=== PATIENT | female | born 1935 | race Caucasian/White ===

== ENCOUNTER 2017-05-23 15:13 | Inpatient (IN) | payer MEDICARE, OTHER ==
[~2017-05-23] VITALS: Ht 167.6 cm; Wt 69.4 kg
--- NOTE | 2017-05-23 15:15 | NUR ---
PATIENT TO ED DT NOSEBLEED X 3HOURS [employer]. PATIENT DENIES TRAUMA, NO KO. PT IS ON XARELTO FOR AFIB. SKIN IS WARM TO TOUCH. AFEBRILE. IN NO DISTRESS. VSS
[2017-05-23] MEDS ORDERED: PHENYLEPHRINE 0.5% NASAL SPRAY 15 ML BOTTLE NS ONE (15:31)
[2017-05-23] MEDS ORDERED: GELATIN SPONGE,ABSORBABLE 1 SPONGE SPONGE TP ONE (16:03)
[2017-05-23 16:23] LABS: BASOPHILS % (AUTO) 0.4 % (0.0-2.0); EOSINOPHILS # (AUTO) 0.1 /CMM (0.0-0.7); EOSINOPHILS % (AUTO) 1.2 % (0.0-6.0); HEMATOCRIT 36 % (33-45); HEMOGLOBIN 12.1 g/dL (11.5-14.8); LYMPHOCYTES # (AUTO) 1.3 /CMM (0.8-4.8); LYMPHOCYTES % (AUTO) 18.5 % (20.0-44.0); MEAN CORPUSCULAR HEMOGLOBIN 32 PG (26.0-33.0); MEAN CORPUSCULAR HGB CONC 34 g/dl (31.0-36.0); MEAN CORPUSCULAR VOLUME 95 fL (82-100); MONOCYTES # (AUTO) 0.5 /CMM (0.1-1.30); NEUTROPHILS # (AUTO) 5.3 /CMM (1.8-8.9); NEUTROPHILS % (AUTO) 72.9 % (43.0-81.0); PLATELET COUNT (AUTO) 254 /CMM (150-450); RDW COEFFICIENT OF VARIATION 16.9 (11.5-15.0); RED BLOOD CELL COUNT(AUTO) 3.83 MIL/uL (4.0-5.2); WHITE BLOOD COUNT (AUTO) 7.2 K/uL (4.3-11.0)
[2017-05-23] MEDS ORDERED: PHENYLEPHRINE HCL NASAL SPRAY 15 ML BOTTLE NS ONE (16:30)
[2017-05-23] MEDS ORDERED: METOPROLOL TARTRATE INJ 5 MG/5 ML AMPUL ONE (16:34)
[2017-05-23 16:38] LABS: CALCIUM, SERUM 8.9 mg/dL (8.5-10.1); CARBON DIOXIDE 27 mmol/L (21-32); CHLORIDE 105 mmol/L (98-107); CREATININE 0.9 mg/dL (0.6-1.3); GLUCOSE 115 mg/dL (74-106); POTASSIUM 4.8 mmol/L (3.5-5.1); SODIUM SERUM 141 mmol/L (136-145); UREA NITROGEN, BLOOD 20 mg/dL (7-18)
[2017-05-23 16:51] LABS: INR 1.29 (0.87-1.13); PROTHROMBIN TIME 13.4 SECS (9.5-12.7)
[2017-05-23] MEDS ORDERED: LABETALOL HCL IV 100MG VIAL IV ONE (17:00)
[2017-05-23] MEDS ORDERED: METOPROLOL TARTRATE INJ 5 MG/5 ML AMPUL IV ONE ×2 (17:00)
[2017-05-23] MEDS ORDERED: TRANEXAMIC ACID IR ONE (17:00)
[2017-05-23] MEDS ORDERED: SODIUM CHLORIDE IRRIG IR ONE (17:00)
[2017-05-23] MEDS ORDERED: TRANEXAMIC ACID 1,500 MG in SODIUM CHLORIDE IRRIG SOLUTION 85 ML IR ONE (17:00)
[2017-05-23] MEDS ORDERED: LABETALOL HCL IV 100MG VIAL ONE (17:01)
--- NOTE | 2017-05-23 17:16 | NUR ---
CALLED NURSING SUP. FOR TELE BED
--- NOTE | 2017-05-23 17:22 | NUR ---
EPIC PAGED, CUSTOM BOOKBINDER
--- NOTE | 2017-05-23 17:28 | NUR ---
CALLED (ENT), NO ANSWER, LEFT MESSAGE ON VOICEMAIL
[2017-05-23] MEDS ORDERED: DIGO250T PO (17:31)
[2017-05-23] MEDS ORDERED: METO-356 PO (17:31)
[2017-05-23] MEDS ORDERED: ATOR10TA PO (17:31)
[2017-05-23] MEDS ORDERED: AMIO200T2 PO (17:31)
[2017-05-23] MEDS ORDERED: ZOLP10TA6 PO (17:31)
[2017-05-23] MEDS ORDERED: GABA-532 PO (17:31)
[2017-05-23] MEDS ORDERED: RIVA10TA PO (17:31)
--- NOTE | 2017-05-23 18:05 | NUR ---
113-1 [facility] BED
--- NOTE | 2017-05-23 18:21 | NUR ---
REPORT GIVEN TO CLOTILDE FOR DAVID
[2017-05-23] MEDS ORDERED: LORAZEPAM INJ 2 MG/ML VIAL IV ONE (18:30)
[2017-05-23 18:50] VITALS: BP 149/98
--- NOTE | 2017-05-23 19:00 | NUR ---
RN NOTE: PATIENT RECEIVED FROM ER ALERT AWAKE ORIENTEDX4. ON ROOM AIR, BREATHING PATTERN REGULAR & UNLABORED. NOTED NASAL PACKING BOTH NARES. NOTED DISCOMFORT WITH PACKING, BUT TOLERABLE. DAUGHTER AT BEDSIDE. SAFETY MEASURES OBSERVED. CALL LIGHT WITHIN REACH. WILL ENDORSED TO PM SHIFT FOR CONTINUITY OF CARE.
--- NOTE | 2017-05-23 19:30 | NUR ---
Received patient from AM nurse and is to be my admission.No unusual signs or symptoms observed or reported,no signs of discomfort or distress.Telemetry attached,recording A-Fib at 91 bpm,no problems.
[2017-05-23] MEDS ORDERED: ONDANSETRON HCL/PF 4 MG/2 ML VIAL IVP PRN (20:30)
[2017-05-23] MEDS ORDERED: MAG HYDROX/AL HYDROX/SIMETH 30 ML UDC PO PRN (20:30)
[2017-05-23] MEDS ORDERED: Z GUARD REMEDY 2 OZ OINT TP PRN (20:30)
[2017-05-23] MEDS ORDERED: MAGNESIUM HYDROXIDE 30 ML UDC PO PRN (20:30)
[2017-05-23] MEDS ORDERED: ACETAMINOPHEN 325 MG TABLET PO PRN (20:30)
[2017-05-23] MEDS ORDERED: hydrALAZINE HCL 25 MG TABLET PO PRN (20:30)
[2017-05-23] MEDS ORDERED: HYDROCODONE/APAP 5/325MG 1 EACH TABLET ONE (21:00)
[2017-05-23] MEDS: HYDROCODONE/APAP 5/325MG 1 EACH TABLET PO PRN (21:05)
[2017-05-23] MEDS ORDERED: GABAPENTIN 100 MG CAPSULE ONE (21:12)
[2017-05-23] MEDS: GABAPENTIN 100 MG CAPSULE PO SCH (21:13)
[2017-05-23] MEDS: IV NS 0.9% 1,000 ML IV PRN (22:35)
--- NOTE | 2017-05-23 23:00 | NUR ---
request pain medication,medicate her as per Md's orders,no problems
[2017-05-23] MEDS ORDERED: ZOLPIDEM TARTRATE 5 MG TABLET ONE (23:31)
[2017-05-23] MEDS: ZOLPIDEM TARTRATE 5 MG TABLET PO PRN (23:33)
[2017-05-24] VITALS: BP 162/86
[2017-05-24] MEDS ORDERED: HYDROCODONE/APAP 5/325MG 1 EACH TABLET ONE ×2 (00:28→05:02)
[2017-05-24] MEDS: HYDROCODONE/APAP 5/325MG 1 EACH TABLET PO PRN ×4 (00:58→13:37)
--- NOTE | 2017-05-24 03:00 | NUR ---
no problems,no complaints except that the pain medication are not relieving the pain,will endorse to incoming nurse
[2017-05-24 04:00] VITALS: BP 157/90
[2017-05-24] MEDS ORDERED: hydrALAZINE HCL 25 MG TABLET ONE (05:50)
--- NOTE | 2017-05-24 05:53 | NUR ---
BP at 0400-157/90,retook it and [id number]-gave Hydralazine 25 mg po,no problems.
--- NOTE | 2017-05-24 07:08 | NUR ---
no problems,no unusual signs or symptoms observed or reported
--- NOTE | 2017-05-24 07:10 | NUR ---
RN INITIAL NOTES: REC'D PT AWAKE ON BED, A/O X 4, NOT IN ANY DISTRESS. ON ROOM AIR, SATING AT 96%. HAS NASAL PACKING ON LEFT NARE IN PLACE AND INTACT W/ NO ACTIVE BLEEDING NOTED. IV LINE ACCESS KEPT PATENT & INTACT W/ NO S/SX OF INFECTION/INFILTRATION NOTED. PROVIDED COMFORT & SAFETY MEASURES. BED KEPT LOW & IN LOCKED POS. CALL LIGHT PLACED W/IN REACH. WILL CONTINUE TO MONITOR AND ATTEND PT NEEDS.
[2017-05-24 07:42] LABS: BASOPHILS % (AUTO) 0.6 % (0.0-2.0); EOSINOPHILS # (AUTO) 0.1 /CMM (0.0-0.7); EOSINOPHILS % (AUTO) 1.1 % (0.0-6.0); HEMATOCRIT 33 % (33-45); LYMPHOCYTES # (AUTO) 1.1 /CMM (0.8-4.8); LYMPHOCYTES % (AUTO) 15.4 % (20.0-44.0); MEAN CORPUSCULAR HEMOGLOBIN 32 PG (26.0-33.0); MEAN CORPUSCULAR HGB CONC 34 g/dl (31.0-36.0); MEAN CORPUSCULAR VOLUME 95 fL (82-100); MONOCYTES # (AUTO) 0.5 /CMM (0.1-1.30); MONOCYTES % (AUTO) 7.7 % (2.0-12.0); NEUTROPHILS # (AUTO) 5.1 /CMM (1.8-8.9); NEUTROPHILS % (AUTO) 75.2 % (43.0-81.0); PLATELET COUNT (AUTO) 222 /CMM (150-450); RDW COEFFICIENT OF VARIATION 16.7 (11.5-15.0); RED BLOOD CELL COUNT(AUTO) 3.45 MIL/uL (4.0-5.2); WHITE BLOOD COUNT (AUTO) 6.8 K/uL (4.3-11.0)
[2017-05-24 07:55] LABS: CALCIUM, SERUM 9.1 mg/dL (8.5-10.1); CARBON DIOXIDE 29 mmol/L (21-32); CHLORIDE 103 mmol/L (98-107); CREATININE 0.8 mg/dL (0.6-1.3); GLUCOSE 111 mg/dL (74-106); PHOSPHORUS 3.6 mg/dL (2.5-4.9); POTASSIUM 5.4 mmol/L (3.5-5.1); SODIUM SERUM 139 mmol/L (136-145); UREA NITROGEN, BLOOD 17 mg/dL (7-18)
[2017-05-24 08:00] VITALS: BP 154/84
[2017-05-24] MEDS: ATORVASTATIN 10 MG TABLET PO SCH (08:56)
[2017-05-24] MEDS: AMIODARONE HCL 200 MG TABLET PO SCH (09:00)
[2017-05-24] MEDS: METOPROLOL SUCCINATE 25 MG TAB.SR.24H PO SCH (09:01)
[2017-05-24] MEDS: GABAPENTIN 100 MG CAPSULE PO SCH ×3 (09:01→17:37)
[2017-05-24 12:00] VITALS: BP 145/78
[2017-05-24] MEDS: DIGOXIN 0.25 MG TABLET PO SCH (13:34)
--- NOTE | 2017-05-24 15:00 | NUR ---
RN NOTES: PT SEEN AND EXAMINED BY DR. GONZALEZ. INFORMED HER THAT DR. MCCORD HAVEN'T SEEN THE PT YET. DR. GONZALEZ WAS ABLE TO SPEAK W/ DR. TURCIOS PERSONALLY RE: REMOVAL OF NASAL PACKING. DR. TURCIOS OFFERED HIMSELF TO REMOVE THE NASAL PACKING. PT AND ANGÉLICA GOMEZ MADE AWARE. DR. TURCIOS ORDERED TO START PT ON AUGMENTIN 500 MG BID X 2 DAYS (INDICATION: PROPHYLAXIS - NASAL PACKING) AND ARCELIA-SYNEPHRINE 1/4% NASAL SPRAY [address] TURCIOS REMOVED THE NASAL PACKING AT BEDSIDE. PT TOLERATED WELL THE PROCEDURE. NO ACTIVE BLEEDING NOTED. PER MD, CONTINUE ARCELIA-SYNEPHRINE 1/4% NASAL SPRAY 2 SPRAY Q12H, ADMINISTER 2 SPRAY ON LEFT NOSTRIL ONLY. ANGÉLICA GOMEZ CALLED AND MADE HER AWARE.
[2017-05-24] MEDS: IV NS 0.9% 1,000 ML IV PRN (15:21)
[2017-05-24] MEDS ORDERED: PHENYLEPHRINE HCL NASAL SPRAY 15 ML BOTTLE NS PRN (15:30)
[2017-05-24] MEDS ORDERED: PHENYLEPHRINE HCL NASAL SPRAY 15 ML BOTTLE NS ONE ×2 (15:30)
[2017-05-24 16:00] VITALS: BP 148/82
[2017-05-24] MEDS: AMOX/CLAVULANATE 250 MG TABLET PO SCH (17:37)
--- NOTE | 2017-05-24 19:00 | NUR ---
RN CLOSING NOTES: NO ACUTE CHANGES NOTED W/IN SHIFT. PT TOLERATED ROOM AIR, NO SOB. NO ACTIVE NOSE BLEEDING NOTED. IV LINE ACCESS KEPT PATENT & INTACT W/ NO S/SX OF INFECTION/INFILTRATION NOTED. PT KEPT WELL RESTED. NEEDS ATTENDED. BED KEPT LOW & IN LOCKED POS. CALL LIGHT PLACED W/IN REACH. WALKER ALWAYS PLACED AT BEDSIDE FOR SAFETY PURPOSES. ENDORSED TO PM RN FOR DAVID.
--- NOTE | 2017-05-24 19:30 | NUR ---
Received patient in the bed.No unusual signs or symptoms observed or reported,no signs of discomfort or distress.Reported that she was happy that the Dr has removed her nose packing,no problems.
[2017-05-24 20:00] VITALS: BP 113/70
--- NOTE | 2017-05-24 21:40 | NUR ---
Asked about HS med ,told her I could get it for her,she said later.
[2017-05-24] MEDS: PHENYLEPHRINE HCL NASAL SPRAY 15 ML BOTTLE NS SCH (21:43)
[2017-05-24] MEDS: ZOLPIDEM TARTRATE 5 MG TABLET PO PRN (23:30)
--- NOTE | 2017-05-24 23:32 | NUR ---
Requested HS med,medicated with Ambien 5 mg po as per Md's order,no problems.
[2017-05-25 00:21] VITALS: BP 108/85
--- NOTE | 2017-05-25 01:36 | NUR ---
now asleep after dosing earlier,no problems
--- NOTE | 2017-05-25 03:00 | NUR ---
assist as needed,no problems
[2017-05-25 04:00] VITALS: BP 108/66
--- NOTE | 2017-05-25 07:30 | NUR ---
RN AM NOTES: REC'D PT AWAKE ON BED, A/O X 4, NOT IN ANY DISTRESS. ROOM AIR, HAS TISSUE ON LEFT NARE IN PLACE AND INTACT W/ NO ACTIVE BLEEDING NOTED. BLOOD STAINED ONLY. TELEMETRY READS AFIB HR 96, NO CHEST PAIN OR SOB. LEFT ARM G 20 WITH NS AT 75 ML/HR INFUSING WELL, SITE CLEAR. CARDIAC DIET. BRP WITH ASSIST. SAFETY MEASURES. BED KEPT LOW & IN LOCKED POS. CALL LIGHT PLACED W/IN REACH. WILL CONTINUE TO MONITOR AND ATTEND PT NEEDS.
[2017-05-25 08:00] VITALS: BP_SYST 105; BP_SYST 129; BP_SYST 136; BP_DIAS 58; BP_DIAS 74; BP_DIAS 80
[2017-05-25] MEDS: ATORVASTATIN 10 MG TABLET PO SCH (09:20)
[2017-05-25] MEDS: AMOX/CLAVULANATE 250 MG TABLET PO SCH ×2 (09:20→17:06)
[2017-05-25] MEDS: GABAPENTIN 100 MG CAPSULE PO SCH ×3 (09:20→17:06)
[2017-05-25] MEDS: AMIODARONE HCL 200 MG TABLET PO SCH (09:25)
[2017-05-25] MEDS: METOPROLOL SUCCINATE 25 MG TAB.SR.24H PO SCH (09:25)
--- NOTE | 2017-05-25 09:30 | NUR ---
RN NOTES DUE MEDS GIVEN
[2017-05-25] MEDS: IV NS 0.9% 1,000 ML IV PRN (09:32)
[2017-05-25] MEDS: PHENYLEPHRINE HCL NASAL SPRAY 15 ML BOTTLE NS SCH ×2 (09:43→21:13)
--- NOTE | 2017-05-25 10:30 | NUR ---
RN NOTES DR. TURCIOS AWARE THAT PT HAS BLOOD TINGED TISSUE ON HER LEFT NARE. PER HE WILL TAKE A LOOK AT HER.
[2017-05-25 12:00] VITALS: BP 111/66
[2017-05-25] MEDS: DIGOXIN 0.25 MG TABLET PO SCH (12:50)
[2017-05-25 16:00] VITALS: BP_SYST 98; BP_DIAS 63; BP_DIAS 83
--- NOTE | 2017-05-25 18:27 | NUR ---
RN CLOSING NOTES: PT AWAKE ON BED, A/O X 4, RESTING COMFORTABLY. NOT IN ANY DISTRESS. ROOM AIR, NO BLEEDING ON HER LEFT NARE, TELEMETRY READS AFIB HR 80s-90s, NO CHEST PAIN OR SOB. LEFT ARM G 20 WITH NS AT 75 ML/HR INFUSING WELL, SITE CLEAR. CARDIAC DIET. BRP WITH ASSIST. SAFETY MEASURES. BED KEPT LOW & IN LOCKED POS. CALL LIGHT PLACED W/IN REACH. ALL NEEDS MET. SAFETY MEASURES IN PLACE. NO OTHER SIGNIFICANT CHANGE IN CONDITION. WILL ENDORSE TO NEXT SHIFT FOR DAVID. PER DR. GONZALEZ FOR POSSIBLE DC VER[place]NICA.
[2017-05-25 20:00] VITALS: BP_SYST 127; BP_SYST 130; BP_DIAS 63; BP_DIAS 83
[2017-05-25] MEDS: ZOLPIDEM TARTRATE 5 MG TABLET PO PRN (21:07)
[2017-05-26] VITALS: BP_SYST 130; BP_SYST 144; BP_DIAS 63; BP_DIAS 78
[2017-05-26 04:00] VITALS: BP 130/91
[2017-05-26 08:00] VITALS: BP 133/82
[2017-05-26] MEDS: PHENYLEPHRINE HCL NASAL SPRAY 15 ML BOTTLE NS SCH (09:00)
[2017-05-26] MEDS: ATORVASTATIN 10 MG TABLET PO SCH (11:26)
[2017-05-26] MEDS: AMOX/CLAVULANATE 250 MG TABLET PO SCH (11:26)
[2017-05-26] MEDS: AMIODARONE HCL 200 MG TABLET PO SCH (11:29)
[2017-05-26] MEDS: METOPROLOL SUCCINATE 25 MG TAB.SR.24H PO SCH (11:29)
[2017-05-26] MEDS: GABAPENTIN 100 MG CAPSULE PO SCH ×2 (11:29→13:00)
[2017-05-26 12:00] VITALS: BP 108/58
[2017-05-26] MEDS: DIGOXIN 0.25 MG TABLET PO SCH (13:17)
[2017-05-26 14:35] LABS: HEMATOCRIT 34 % (33-45); HEMOGLOBIN 11.1 g/dL (11.5-14.8); MEAN CORPUSCULAR HEMOGLOBIN 31 PG (26.0-33.0); MEAN CORPUSCULAR HGB CONC 33 g/dl (31.0-36.0); MEAN CORPUSCULAR VOLUME 94 fL (82-100); NEUTROPHILS % (AUTO) 76.3 % (43.0-81.0); PLATELET COUNT (AUTO) 231 /CMM (150-450); RDW COEFFICIENT OF VARIATION 15.9 (11.5-15.0); RED BLOOD CELL COUNT(AUTO) 3.62 MIL/uL (4.0-5.2); WHITE BLOOD COUNT (AUTO) 7.3 K/uL (4.3-11.0)
[2017-05-26 14:36] LABS: BASOPHILS % (AUTO) 0.6 % (0.0-2.0); EOSINOPHILS % (AUTO) 0.6 % (0.0-6.0); LYMPHOCYTES # (AUTO) 0.9 /CMM (0.8-4.8); LYMPHOCYTES % (AUTO) 11.7 % (20.0-44.0); MONOCYTES # (AUTO) 0.8 /CMM (0.1-1.30); MONOCYTES % (AUTO) 10.8 % (2.0-12.0); NEUTROPHILS # (AUTO) 5.6 /CMM (1.8-8.9)
[2017-05-26] MEDS ORDERED: APIX5TAB PO (15:18)
[2017-05-26 16:00] VITALS: BP 120/66
== END 2017-05-26 17:18 | disposition home or self-care (01) | DRG 151 ==
LOC: ER 15:16 → TELE1 18:18 → MEDSG1 05-26 14:07
PROVIDERS: ADMIT Internal Medicine; ATTEND Internal Medicine
DX: R04.0 Epistaxis (principal); D68.59 Other primary thrombophilia; I48.91 Unspecified atrial fibrillation; E78.5 Hyperlipidemia, unspecified; I10 Essential (primary) hypertension; I25.10 Atherosclerotic heart disease of native coronary artery without angina pectoris; G89.29 Other chronic pain; K21.9 Gastro-esophageal reflux disease without esophagitis; Z79.01 Long term (current) use of anticoagulants; Z79.899 Other long term (current) drug therapy; I70.0 Atherosclerosis of aorta
CPT/HCPCS: 36415; 80048-TC; 80162-TC; 83735-TC; 84100-TC; 85025-TC; 85730-TC; 86850-TC; 87081-TC; A4217; J3490; J7030